=== PATIENT | male | born 1985 | race Caucasian/White ===

== ENCOUNTER 2024-02-11 10:13 | Emergency (ER) | payer MEDICARE ==
--- NOTE | 2024-02-11 10:15 | ERPHSYRPT ---
- History of Present Illness Time Seen by Provider: 02/11/24 10:15 Historian: patient Exam Limitations: no limitations Physician History: This is a 38-year-old white male patient who presents to the emergency department with 3-day history of initial right-sided abdominal pain and now it expanded to include his generalized abdomen and associated bilateral flank pain. He has had intermittent nausea vomiting and diarrhea symptoms. Patient takes no medications chronically and he has no known drug allergies. He denies chest pain. He denies shortness of breath. He has never had any abdominal surgeries in the past. He has no known exposures to individuals with similar symptoms. Timing/Duration: day(s) (3), worse Quality: sharpness Abdominal Pain Onset Location: generalized abdomen Pain Radiation: flank (Bilateral) Severity of Pain-Max: moderate Severity of Pain-Current: moderate Modifying Factors: Improves With: vomiting Associated Symptoms: diarrhea, loss of appetite, nausea, vomiting, No chest pain, No fever/chills, No shortness of breath Previous symptoms: no prior history, no recent treatment Allergies/Adverse Reactions: No Known Drug Allergies Allergy (Verified 02/11/24 11:07) Travel Risk - International Travel Have you traveled outside of the country in past 3 weeks: No - Emerging Infectious Disease Are you exhibiting symptoms associated with any current EIDs: Yes Symptoms: Abdominal Pain, Diarrhea, Vomitting - Review of Systems Constitutional: No Symptoms Eyes: No Symptoms Ears, Nose, & Throat: No Symptoms Respiratory: No Symptoms Cardiac: No Symptoms Abdominal/Gastrointestinal: Abdominal Pain, Nausea, Vomiting, Diarrhea, Appetite Changes Genitourinary Symptoms: No Symptoms Musculoskeletal: No Symptoms Skin: No Symptoms Neurological: No Symptoms Psychological: No Symptoms Endocrine: No Symptoms Hematologic/Lymphatic: No Symptoms Immunological/Allergic: No Symptoms All Other Systems: Reviewed and Negative - Past Medical History Pertinent Past Medical History: No - Past Surgical History Past Surgical History: No - Nursing Vital Signs Nursing Vital Signs: Initial Vital Signs Temperature 97.3 F 02/11/24 11:00 Pulse Rate 77 02/11/24 11:00 Respiratory Rate 10 L 02/11/24 11:00 Blood Pressure 144/96 02/11/24 11:00 O2 Sat by Pulse Oximetry 99 02/11/24 11:00 Pain Scale Pain Intensity 2 - Physical Exam General Appearance: no apparent distress, alert, anxiety Eye Exam: PERRL/EOMI, eyes nml inspection Ears, Nose, Throat Exam: normal ENT inspection, moist mucous membranes Neck Exam: normal inspection, non-tender, supple, full range of motion Respiratory Exam: normal breath sounds, lungs clear, airway intact, No chest tenderness, No respiratory distress Cardiovascular Exam: regular rate/rhythm, normal heart sounds, normal peripheral pulses Gastrointestinal/Abdomen Exam: soft, normal bowel sounds, tenderness (Generalized to palpation), guarding (Mild, generalized to palpation), No rebound Rectal Exam: not done Back Exam: normal inspection, normal range of motion, No CVA tenderness, No vertebral tenderness Extremity Exam: normal inspection, normal range of motion, pelvis stable Neurologic Exam: alert, oriented x 3, cooperative, 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, nml cerebellar function, nml station & gait, sensation nml Skin Exam: normal color, warm, dry Lymphatic Exam: No adenopathy SpO2 Interpretation: normal O2 Delivery: Room Air - Course Nursing assessment & vital signs reviewed: Yes Ordered Tests: Active Orders 24 hr Category Date Time Status IV Insertion STAT Care 02/11/24 11:31 Active ABDOMEN AND PELVIS W/0 CONTRAS [CT] Stat Exams 02/11/24 11:32 Completed AMYLASE Stat Lab 02/11/24 11:05 Completed CBC W DIFF Stat Lab 02/11/24 11:05 Completed CMP Stat Lab 02/11/24 11:05 Completed LIPASE Stat Lab 02/11/24 11:05 Completed MONO SCREEN Stat Lab 02/11/24 11:05 Completed TROPONIN Q4H Lab 02/11/24 11:05 Completed TROPONIN Q4H Lab 02/11/24 15:45 Ordered TROPONIN Q4H Lab 02/11/24 19:45 Ordered UA W/RFX UR CULTURE Stat Lab 02/11/24 13:38 Completed Medication Summary Discontinued Medications Generic Name Dose Route Start Last Admin Trade Name Freq PRN Reason Stop Dose Admin Hydromorphone HCl 1 mg 02/11/24 11:31 02/11/24 11:42 Hydromorphone 1 Mg/1ml Inj IV 02/11/24 11:32 1 mg STAT ONE Administration Hydromorphone HCl Confirm 02/11/24 11:36 Hydromorphone 1 Mg/1ml Inj Administered 02/11/24 11:37 Dose 1 mg .ROUTE .STK-MED ONE Sodium Chloride 1,000 mls @ 999 mls/hr 02/11/24 11:31 02/11/24 12:51 Sodium Chloride 0.9% 1000 Ml IV 02/11/24 12:31 Infused .Q1H1M STA Infusion Sodium Chloride Confirm 02/11/24 11:37 Sodium Chloride 0.9% 1000 Ml Administered 02/11/24 11:38 Dose 1,000 mls @ ud .ROUTE .STK-MED ONE Ondansetron HCl 4 mg 02/11/24 11:31 02/11/24 11:38 Ondansetron Hcl 4 Mg/2 Ml Vial IV 02/11/24 11:32 4 mg STAT ONE Administration Ondansetron HCl Confirm 02/11/24 11:36 Ondansetron Hcl 4 Mg/2 Ml Vial Administered 02/11/24 11:37 Dose 4 mg .ROUTE .STK-MED ONE Pantoprazole Sodium 40 mg 02/11/24 11:31 02/11/24 11:40 Pantoprazole 40 Mg Vial IV 02/11/24 11:32 40 mg STAT ONE Administration Pantoprazole Sodium Confirm 02/11/24 11:36 Pantoprazole 40 Mg Vial Administered 02/11/24 11:37 Dose 40 mg IV .STK-MED ONE Prochlorperazine Edisylate 5 mg 02/11/24 12:58 02/11/24 13:48 Prochlorperazine Edisylate 10 Mg/2 Ml Vial IV 02/11/24 12:59 Not Given STAT ONE Lab/Rad Data: Laboratory Result Diagrams 02/11/24 11:05 02/11/24 11:05 Laboratory Results 02/11/24 02/11/24 02/11/24 Range/Units 13:38 12:27 11:05 WBC (4.23-9.07) x10^3/uL RBC (4.63-6.08) x10^6/uL Hgb (13.7-17.5) g/dL Hct (40.1-51.0) % MCV (79.0-92.2) fL MCH (25.7-32.2) pg MCHC (32.3-36.5) g/dL RDW (11.6-14.4) % Plt Count (163-337) x10^3/uL MPV (9.4-12.4) fL Gran % (34.0-67.9) % Immature Gran % (Auto) (0.001-0.429) % Nucleat RBC Rel Count (0.00-0.2) % Eos # (Auto) (0.04-0.54) x10^3/uL Immature Gran # (Auto) (0.001-0.031) x10^3u/L Absolute Lymphs (auto) (1.32-3.57) x10^3/uL Absolute Monos (auto) (0.30-0.82) x10^3/uL Absolute Nucleated RBC (0.00-0.012) x10^3u/L Lymphocytes % (21.8-53.1) % Monocytes % (5.3-12.2) % Eosinophils % (0.8-7.0) % Basophils % (0.2-1.2) % Absolute Granulocytes (1.78-5.38) x10^3/uL Basophils # (0.01-0.08) x10^3/uL Sodium (135-145) mmol/L Potassium (3.5-5.1) mmol/L Chloride (98-107) mmol/L Carbon Dioxide (22-30) mmol/L Anion Gap (5-15) MEQ/L BUN (9-20) mg/dL Creatinine (0.66-1.25) mg/dL Estimated GFR ML/MIN Glucose (74-106) mg/dL Calcium (8.4-10.2) mg/dL Total Bilirubin (0.2-1.3) mg/dL AST (17-59) U/L ALT (0-50) U/L Alkaline Phosphatase (38-126) U/L Troponin I (0.000-0.033) ng/mL Serum Total Protein (6.3-8.2) g/dL Albumin (3.5-5.0) g/dL Amylase (30-110) U/L Lipase (23-300) U/L Urine Color Yellow (Yellow) Urine Appearance Clear (Clear) Urine pH 5.5 (4.6-8.0) Ur Specific [place] 1.025 (1.005-1.030) Urine Protein Trace A (Negative) Urine Glucose (UA) Negative (Negative) mg/dL Urine Ketones 40 A (Negative) Urine Blood Negative (Negative) Urine Nitrite Negative (Negative) Urine Bilirubin Negative (Negative) Urine Urobilinogen 1.0 A (0.2) mg/dL Ur Leukocyte Esterase Negative (Negative) U Hyaline Cast (Auto) NONE SEEN (0-2) /LPF Urine Microscopic RBC 0-2 (0-5) /HPF Urine Microscopic WBC 0-2 (0-5) /HPF Ur Epithelial Cells None Seen (None Seen) /HPF Urine Bacteria None Seen (None Seen) /HPF Urine Culture Reflexed NO (NO) Monoscreen NEGATIVE (NEGATIVE) Influenza Type A Ag NEGATIVE (NEGATIVE) Influenza Type B Ag NEGATIVE (NEGATIVE) RSV (PCR) NEGATIVE (NEGATIVE) SARS-CoV-2 (PCR) NEGATIVE (NEGATIVE) 02/11/24 02/11/24 02/11/24 Range/Units 11:05 11:05 11:05 WBC 13.7 H (4.23-9.07) x10^3/uL RBC 5.03 (4.63-6.08) x10^6/uL Hgb 15.3 (13.7-17.5) g/dL Hct 44.1 (40.1-51.0) % MCV 87.7 (79.0-92.2) fL MCH 30.4 (25.7-32.2) pg MCHC 34.7 (32.3-36.5) g/dL RDW 12.2 (11.6-14.4) % Plt Count 250 (163-337) x10^3/uL MPV 11.4 (9.4-12.4) fL Gran % 81.1 H (34.0-67.9) % Immature Gran % (Auto) 0.5 H (0.001-0.429) % Nucleat RBC Rel Count 0.0 (0.00-0.2) % Eos # (Auto) 0.26 (0.04-0.54) x10^3/uL Immature Gran # (Auto) 0.07 H (0.001-0.031) x10^3u/L Absolute Lymphs (auto) 1.51 (1.32-3.57) x10^3/uL Absolute Monos (auto) 0.69 (0.30-0.82) x10^3/uL Absolute Nucleated RBC 0.00 (0.00-0.012) x10^3u/L Lymphocytes % 11.0 L (21.8-53.1) % Monocytes % 5.0 L (5.3-12.2) % Eosinophils % 1.9 (0.8-7.0) % Basophils % 0.5 (0.2-1.2) % Absolute Granulocytes 11.07 H (1.78-5.38) x10^3/uL Basophils # 0.07 (0.01-0.08) x10^3/uL Sodium 135 (135-145) mmol/L Potassium 3.6 (3.5-5.1) mmol/L Chloride 100 (98-107) mmol/L Carbon Dioxide 20 L (22-30) mmol/L Anion Gap 18.3 H (5-15) MEQ/L BUN 12 (9-20) mg/dL Creatinine 0.80 (0.66-1.25) mg/dL Estimated GFR 115.5 ML/MIN Glucose 138 H (74-106) mg/dL Calcium 9.4 (8.4-10.2) mg/dL Total Bilirubin 0.90 (0.2-1.3) mg/dL AST 38 (17-59) U/L ALT 45 (0-50) U/L Alkaline Phosphatase 120 (38-126) U/L Troponin I < 0.012 (0.000-0.033) ng/mL Serum Total Protein 8.2 (6.3-8.2) g/dL Albumin 4.8 (3.5-5.0) g/dL Amylase 74 (30-110) U/L Lipase 43 (23-300) U/L Urine Color (Yellow) Urine Appearance (Clear) Urine pH (4.6-8.0) Ur Specific [place] (1.005-1.030) Urine Protein (Negative) Urine Glucose (UA) (Negative) mg/dL Urine Ketones (Negative) Urine Blood (Negative) Urine Nitrite (Negative) Urine Bilirubin (Negative) Urine Urobilinogen (0.2) mg/dL Ur Leukocyte Esterase (Negative) U Hyaline Cast (Auto) (0-2) /LPF Urine Microscopic RBC (0-5) /HPF Urine Microscopic WBC (0-5) /HPF Ur Epithelial Cells (None Seen) /HPF Urine Bacteria (None Seen) /HPF Urine Culture Reflexed (NO) Monoscreen (NEGATIVE) Influenza Type A Ag (NEGATIVE) Influenza Type B Ag (NEGATIVE) RSV (PCR) (NEGATIVE) SARS-CoV-2 (PCR) (NEGATIVE) - Progress Progress: improved, pain not gone completely, re-examined Progress Note: 02/11/24 11:36 My medical decision making and the assignment of moderate complexity to this patient's medical issue today is based on review of the patient's past medical history, review the patient's medication list, reviewed patient drug allergy list, history present illness and physical findings on examination. The workup in this patient includes placement of intravenous line, infusion normal saline solution, infusion of Dilaudid and Zofran intravenously, CBC, CMP, amylase, lipase, urinalysis, CT scan of the abdomen pelvis without contrast and viral studies, monotest. Differential diagnosis includes but is not limited to viral illness, gastroenteritis, colitis, diverticulitis, acute appendicitis, pancreatitis 02/11/24 14:24 I interpreted the patient's laboratory data results. Patient has a mild leukocytosis and mild dehydration. Both of these medical issues are likely due to the patient vomiting over the last few days intermittently. The CT scan of the abdomen pelvis without contrast was interpreted by the radiologist and I reviewed the impression. The impression states no renal calculus or evidence of obstructive uropathy. There is an abnormally distended gallbladder. There is markedly advanced degenerative changes in bilateral hips and an indeterminate left psoas muscle intramuscular fluid collection. The patient's liver function test and pancreas enzymes are normal. We will remotely send a prescription for Cipro and Flagyl as well as Zofran and [place] 5/325 prescription to his pharmacy. He is to follow-up with his primary care pr ariel, today, by phone to make arrangements for follow-up appointment for an outpatient gallbladder ultrasound. In addition, patient was told to follow-up in the [facility] orthopedic clinic for further evaluation and management of this left psoas intramuscular fluid collection (? Abscess). 02/11/24 14:27 Counseled pt/family regarding: lab results, diagnosis, need for follow-up, rad results Medical Desision Making - Diagnostic Testing Diagnostic test were ordered, analyzed, and reviewed by me: Yes Radiological Interpretation: Reviewed by me, Teleradiologist Report - Risk of complications The pt has a mod risk of morbidity or mortality based on: Need for prescription drug management - Departure Departure Disposition: Home Clinical Impression: Gallbladder anomaly, Psoas muscle abscess Condition: Stable Critical Care Time: No Additional Instructions: Avoid fatty greasy spicy foods. Call your primary care provider today, 02/11/2024, to make arrangements for follow-up appointment for further evaluation and management. Take your antibiotics and pain medicine as prescribed. Use the antinausea medicine as needed and prescribed. Follow-up tomorrow, 02/12/2024, with the [facility] orthopedic clinic at 8 AM for further evaluation and management of the left psoas muscle fluid collection. Prescriptions: Ondansetron ODT 4 MG [Zofran Odt 4 mg] 4 mg PO Q6H PRN PRN #10 tablet PRN Reason: Vomiting Hydrocodone/APAP 5/325 [[place] 5/325 mg] 1 each PO Q8H PRN PRN #6 tablet MDD 3 PRN Reason: Pain Ciprofloxacin [Cipro 500 MG] 500 mg PO BID #14 tablet Metronidazole 500 mg [Flagyl 500 MG] 500 mg PO TID #21 tablet
[2024-02-11 11:15] VITALS: TEMP 97.3
[2024-02-11] MEDS ORDERED: PROTONIX 40 MG IV IV ONE (11:36)
[2024-02-11] MEDS ORDERED: Hydromorphone 1 mg/ml Injection ONE ×2 (11:36→14:43)
[2024-02-11] MEDS ORDERED: Zofran 4 MG/2 ML VIAL ONE ×2 (11:36→14:42)
[2024-02-11] MEDS ORDERED: Sodium Chloride 0.9% 1000 ML 1,000 ML ONE (11:37)
[2024-02-11] MEDS: Zofran 4 MG/2 ML VIAL IV ONE ×2 (11:38→14:44)
[2024-02-11] MEDS: Sodium Chloride 0.9% 1000 ML 1,000 ML IV STA (11:39)
[2024-02-11 11:40] LABS: Absolute Neutrophil Ct (ANC) 11.07 x10^3/uL (1.78-5.38); BASOPHIL % 0.5 % (0.2-1.2); Basophil (Absolute #) 0.07 x10^3/uL (0.01-0.08); Eosinophil % 1.9 % (0.8-7.0); Eosinophil (Absolute #) 0.26 x10^3/uL (0.04-0.54); Hematocrit 44.1 % (40.1-51.0); Hemoglobin 15.3 g/dL (13.7-17.5); IMMATURE GRAN # 0.07 x10^3u/L (0.001-0.031); IMMATURE GRAN % 0.5 % (0.001-0.429); Lymphocyte (Absolute #) 1.51 x10^3/uL (1.32-3.57); Mean Cell Volume 87.7 fL (79.0-92.2); Mean Corpuscular Hemoglobin 30.4 pg (25.7-32.2); Mean Corpuscular Hgb Concent. 34.7 g/dL (32.3-36.5); Mean Platelet Volume 11.4 fL (9.4-12.4); Monocyte (Absolute #) 0.69 x10^3/uL (0.30-0.82); Neutrophil % 81.1 % (34.0-67.9); Platelet Count 250 x10^3/uL (163-337); Red Blood Count 5.03 x10^6/uL (4.63-6.08); Red Cell Distribution Width 12.2 % (11.6-14.4); White Blood Count 13.7 x10^3/uL (4.23-9.07)
[2024-02-11] MEDS: PROTONIX 40 MG IV IV ONE (11:40)
[2024-02-11] MEDS: Hydromorphone 1 mg/ml Injection IV ONE ×2 (11:42→14:46)
[2024-02-11 11:56] LABS: ALBUMIN 4.8 g/dL (3.5-5.0); ANION GAP 18.3 MEQ/L (5-15); BILIRUBIN,TOTAL 0.9 mg/dL (0.2-1.3); Calcium 9.4 mg/dL (8.4-10.2); Creatinine 1 0.8 mg/dL (0.66-1.25); EST GLOMERULAR FILTRATION RATE 115.5 ML/MIN; Potassium 3.6 mmol/L (3.5-5.1); Total Protein 8.2 g/dL (6.3-8.2)
--- NOTE | 2024-02-11 12:49 | XRAY ---
Indication: Right flank pain. Nausea, vomiting, diarrhea. Multiple contiguous axial images obtained through the abdomen and pelvis without contrast using renal stone protocol. Comparison: None Lung bases clear. Heart not enlarged. No renal calculus or evidence for obstructive uropathy in either system. Noncontrasted stomach and bowel loops appear nonobstructed with normal appendix. Gallbladder distended without gallstones or biliary distention. No free fluid/air. Remaining liver, gallbladder, pancreas, spleen, adrenal glands, kidneys, ureters, bladder, and aorta are unremarkable for noncontrast exam. Osseous structures intact. Both hips demonstrates markedly advanced degenerative changes and bony remodeling. Left psoas muscle intramuscular fluid collection measuring at least 4.2 x 2.7 x 8.4 cm. Impression: 1. No renal calculus or evidence for obstructive uropathy. 2. Abnormally distended gallbladder better evaluated with sonogram if clinically warranted. 3. Markedly advanced degenerative changes both hips and indeterminant left psoas intramuscular fluid collection.
[2024-02-11 13:08] LABS: INFLUENZA A NEGATIVE (NEGATIVE); INFLUENZA B NEGATIVE (NEGATIVE); RESPIRATORY SYNCTIAL VIRUS NEGATIVE (NEGATIVE); SARS-CoV-2 Xpert Express NEGATIVE (NEGATIVE)
[2024-02-11 13:46] LABS: Appearance Clear (Clear); Bacteria None Seen /HPF (None Seen); Bilirubin Negative (Negative); Blood Negative (Negative); Epithelial Cells None Seen /HPF (None Seen); Glucose, Urine Negative (Negative); Hyaline Casts NONE SEEN /LPF (0-2); Ketones 40 (Negative); Leukocyte Esterase Negative (Negative); Nitrite Negative (Negative); Ph 5.5 (4.6-8.0); Protein,Urine Dip Trace (Negative); RBC 0-2 /HPF (0-5); Specific Gravity 1.025 (1.005-1.030); WBC 0-2 /HPF (0-5)
[2024-02-11] MEDS: Compazine 10 MG/2 ML IV ONE (13:48)
[2024-02-11 13:52] LABS: ADD URINE CULTURE? NO (NO)
[2024-02-11] MEDS ORDERED: Sodium Chloride 0.9% 500 ML 500 ML IV ONE (15:17)
[2024-02-11] MEDS: Sodium Chloride 0.9% 500 ML 500 ML IV ONE (15:18)
[2024-02-11 16:19] VITALS: BP 117/84; PULSE 86; RESP 23; O2SAT 97
== END 2024-02-11 16:50 | disposition home or self-care (01) ==
LOC: ED 10:13
DX: K82.8 Other specified diseases of gallbladder (principal); M60.08 Infective myositis, other site; R10.84 Generalized abdominal pain; R11.2 Nausea with vomiting, unspecified; R19.7 Diarrhea, unspecified; Z79.891 Long term (current) use of opiate analgesic; Z79.899 Other long term (current) drug therapy
CPT/HCPCS: 0241U; 36000; 36415; 74176; 80053; 81001; 82150; 83690; 84484; 85025; 86308; 96374; 96375; 96376; 99284; J1170; J2405

== ENCOUNTER 2024-04-17 10:30 | Day surgery (SDC) | payer MEDICARE ==
--- NOTE | 2024-04-15 08:01 | HP ---
HISTORY OF PRESENT ILLNESS: The patient is a 38-year-old male, present with right upper quadrant radiating to his back. [place] food is a trigger. He has been to the ER for this pain. He has some nausea and diarrhea now. The patient does have a history of muscular dystrophy and he is to see a new neurologist here soon. Workup shows that he does have some gallbladder sludge. PAST MEDICAL HISTORY: Muscular dystrophy, arthritis. HOME MEDICATIONS: None. ALLERGIES: None. PAST SURGICAL HISTORY: None. SOCIAL HISTORY: Former smoker. FAMILY HISTORY: None. REVIEW OF SYSTEMS: CONSTITUTIONAL: Denies fever or chills. CHEST: Denies shortness of breath. CARDIOVASCULAR: Denies chest pain. ABDOMEN: Reports abdominal pain. PHYSICAL EXAMINATION: GENERAL: No acute distress. CARDIOVASCULAR: Regular rate and rhythm. RESPIRATORY: Nonlabored. No shortness of breath. ABDOMEN: Soft. IMPRESSION: Gallbladder sludge. PLAN: Laparoscopic cholecystectomy with Dr. Hayden Mcgee. This report was dictated for Dr. Mcgee by Lady Dia NP.
[2024-04-17 10:43] VITALS: RESP 16
[2024-04-17] MEDS ORDERED: Lactated Ringers 1,000 ML IV ONE ×2 (11:05→13:27)
[2024-04-17] MEDS ORDERED: MEFOXIN 2 GM PREMIX** 2 GM/50 ML ML IV ONE (11:05)
[2024-04-17] MEDS: Lactated Ringers 1,000 ML IV SCH (11:11)
[2024-04-17] MEDS: MEFOXIN 2 GM PREMIX** 2 GM/50 ML ML IV SCH (11:12)
[2024-04-17] MEDS ORDERED: DIPRIVAN 200 MG/20 ML IV ONE (12:55)
[2024-04-17] MEDS ORDERED: ROCURONIUM BROMIDE IV ONE (12:55)
[2024-04-17] MEDS ORDERED: TORAdol 30 mg Injection ONE (12:55)
[2024-04-17] MEDS ORDERED: Zofran 4 MG/2 ML VIAL ONE ×2 (12:55→15:12)
[2024-04-17] MEDS ORDERED: Decadron 4 MG INJ ONE (12:55)
[2024-04-17] MEDS ORDERED: BRIDION 200MG/2ML IV ONE (12:55)
[2024-04-17] MEDS ORDERED: Xylocaine-Mpf 2% 5 Ml Vial ONE (12:55)
[2024-04-17] MEDS ORDERED: SUBLIMAZE 100 MCG/2 ML ONE ×3 (12:58→15:12)
[2024-04-17] MEDS ORDERED: Sensorcaine 0.25% 10 ML ONE (13:18)
[2024-04-17] MEDS ORDERED: Sodium Chloride 0.9% 1000 ML 1,000 ML ONE (13:43)
[2024-04-17] MEDS ORDERED: Hydromorphone 1 mg/ml Injection ONE (14:43)
[2024-04-17 15:41] VITALS: TEMP 97.2
[2024-04-17 16:14] VITALS: BP 115/72; PULSE 80; O2SAT 94
--- NOTE | 2024-04-18 11:28 | OP ---
SURGERY DATE/TIME: 04/17/2024 [id number] PREOPERATIVE DIAGNOSIS: Symptomatic cholelithiasis. POSTOPERATIVE DIAGNOSIS: Symptomatic cholelithiasis. PROCEDURE: Laparoscopic cholecystectomy. SURGEON: Hayden Mcgee MD ANESTHESIA: General endotracheal tube. COMPLICATIONS: None. CONDITION: Stable. INDICATIONS: Patient with cholecystitis and cholelithiasis. Presents for cholecystectomy. DESCRIPTION OF PROCEDURE AND FINDINGS: Patient was taken to surgery. General anesthetic. Routine prep and drape. Veress needle inserted. Opening pressure of 1. Insufflated to a pressure of 14. Four 5's. Good visualization. Cystic duct defined. Cystic artery defined. Gallbladder was very firm. He has had a hydrops. It was aspirated totally. The firmness continued out the infundibulum some but then it got soft. It was taken about 1 cm off the visible vertical common bile duct structure with the stapling device. Gallbladder rolled out of the gallbladder fossa. Gallbladder delivered. The hole had to be enlarged. The gallbladder was about 6 inches long and 1-1/2 inches wide and very firm, thick. Hole closure device with 3 sutures 0 Vicryl closed. Skin was very clean. CO2 was exsufflated. Skin was closed with 4-0 Vicryl. Patient tolerated the procedure satisfactorily.
== END 2024-04-17 16:10 | disposition home or self-care (01) ==
LOC: SDC 10:30
PROVIDERS: ATTEND Surgery
DX: K80.20 Calculus of gallbladder without cholecystitis without obstruction (principal)
CPT/HCPCS: J0694; J1100; J1171; J1885; J2405; J2704; J3010; C1781